=== PATIENT | male | born 1950 | race Caucasian/White ===

== ENCOUNTER 2020-07-18 00:17 | Inpatient (IN) | payer MEDICARE, OTHER ==
[~2020-07-18] VITALS: Ht 167.6 cm; Wt 45.4 kg
[2020-07-18 03:19] LABS: HEMOGLOBIN 9.6 gm/dl (14.0-17.5); RED BLOOD COUNT 3.71 M/UL (4.20-5.50); WHITE BLOOD COUNT 6.5 K/UL (4.5-11.0)
[2020-07-18 03:49] LABS: BUN/CREATININE RATIO 30 (0-10)
[2020-07-18] MEDS ORDERED: GABAPENTIN600 MG PO (10:49)
[2020-07-18] MEDS ORDERED: MYLANTA MAXIMU355 ML PO (10:50)
[2020-07-18] MEDS ORDERED: VOLTAREN100 GM TP (10:50)
[2020-07-18] MEDS ORDERED: KEFLEX SUS250 MG/5 M PO (10:52)
[2020-07-18] MEDS ORDERED: FERROUS SULFAT325 MG PO (16:15)
[2020-07-18] MEDS ORDERED: TYLENOL325 MG PO (16:15)
[2020-07-18] MEDS ORDERED: PROTONIX 40 MG40 M1 PO (16:16)
[2020-07-18] MEDS ORDERED: METOPROLOL TART25 MG PO (16:16)
[2020-07-18] MEDS ORDERED: VITAMIN D21250 MCG PO (16:17)
[2020-07-18] MEDS ORDERED: VITAMIN B-12250 MCG PO (16:17)
[2020-07-18] MEDS ORDERED: FOLIC ACID 1 MG1 MG PO (16:17)
--- NOTE | 2020-07-19 04:16 | NUR ---
PT REFUSES IV; MADE MULTIPLE ATTEMPTS TO START IV AND PT REFUSES. SITTER FOUND 3 METAL SCREWS IN PTS BED; SITTER ALSO FOUND 3 PILLS IN THE PTS BED.
[2020-07-19 08:44] LABS: HEMOGLOBIN 10.2 gm/dl (14.0-17.5); RED BLOOD COUNT 3.94 M/UL (4.20-5.50)
[2020-07-19 09:29] LABS: BUN/CREATININE RATIO 25 (0-10)
[2020-07-20 02:47] LABS: HEMOGLOBIN 9.8 gm/dl (14.0-17.5); RED BLOOD COUNT 3.8 M/UL (4.20-5.50)
[2020-07-20 02:58] LABS: WHITE BLOOD COUNT 5.4 K/UL (4.5-11.0)
[2020-07-20 03:06] LABS: BUN/CREATININE RATIO 26 (0-10)
[2020-07-20 08:39] LABS: HEMOGLOBIN 10.4 gm/dl (14.0-17.5)
--- NOTE | 2020-07-20 10:30 | NUR ---
PATIENT GOES IN CYCLES OF BEING VERY VOCAL, CALLING OUT, AND CLAIMS TO GET VERY LITTLE RELIEF FROM REPOSITIONING, OR PAIN MEDICATION. PATIENT HAS A 1:1 SITTER, HE HAD MADE SUICIDAL COMMENTS. REFUSED AN IV FOR TWO DAYS. FINALLY RECIEVED AN IV AND MAINTENANCE FLUIDS, WELL IV PAIN MEDS.
--- NOTE | 2020-07-20 10:40 | NUR ---
PATIENT HAS BP OF 86/51, AND UNCONTROLLED PAIN. PHYSICIAN NOTIFIED. SAYS SHE IS COMING RIGHT UP TO SEE PATIENT.
[2020-07-23] MEDS ORDERED: MIDODRINE HCL5 MG PO (10:55)
[2020-07-23] MEDS ORDERED: FERROUS SULFAT325 M2 PO (10:55)
[2020-07-23] MEDS ORDERED: GABAPENTIN600 MG PO (10:55)
[2020-07-23] MEDS ORDERED: THERAGRAN M TAB1 EA PO (10:55)
[2020-07-23] MEDS ORDERED: SEROQUEL XR50 MG PO (10:55)
[2020-07-23] MEDS ORDERED: REMERON 15 MG T15 MG PO (10:55)
--- NOTE | 2020-07-27 02:59 | NUR ---
07/27/15 0215 PT REFUSED AM LABS. LAB STATES THEY WILL CHECK AGAIN AT 7AM
[2020-07-27] MEDS ORDERED: HYDROCODON-ACE1 EAC2 PO (14:00)
[2020-07-27] MEDS ORDERED: ENOXAPARIN40 MG/0.4 SC (14:11)
[2020-07-27] MEDS ORDERED: KLONOPIN TAB 00.5 MG PO ×2 (14:37→14:45)
--- NOTE | 2020-07-27 16:49 | NUR ---
JACEY DIANE AT [facility] CONTACTED FOR REPORT AT THIS TIME.
--- NOTE | 2020-07-27 17:00 | NUR ---
SPOKE WITH [facility] AT THIS TIME ABOUT PATIENT TRANSFER.
--- NOTE | 2020-07-28 01:38 | NUR ---
0055 EMS CAME TO INCOME TAX ADMINISTRATOR PATIENT TO TAKE HIM TO [facility] 0110 EMS BROUGHT PATIENT BACK AND SAID THAT HE WAS REFUSING TO GO. EMS SAID THAT SINCE THE PATIENT IS ALERT AND ORIENTED, IT WAS TECHNICALLY "KIDNAPPING" IF THEY TOOK HIM. PATIENT IS VISIBLY UPSET AND SAID HE WAS AFRAID IF HE WENT TO [facility] THAT HE WOULD NOT BE ABLE TO SEE HIS S ON. NOTIFIED INSPECTOR BRAKE LINING ELIUD OF SITUATION. ELIZABET CHARGE NURSE ALSO PRESENT. WE TRIED TO CONSOLE PATIENT. 0115 ATTEMPTED TO CALL PATIENT'S SON THREE TIMES, NO ANSWER. 0120 NOTIFIED ELIUD AND PATIENT THAT THE SON DID NOT ANSWER THE PHONE. PATIENT STILL REFUSES TO GO TO THE REHAB FACILITY. ME, ELIUD, AND ELIZABET TRIED TO REASSURE THE PATIENT AND CONSOLE HIM, BUT HE STILL REFUSED. EMS BROUGHT PATIENT BACK TO HIS ROOM. 0130 ELIZABET RN NOTIFIED [facility] THAT THE PATIENT WOULD NOT BE COMING TONIGHT DUE TO HIM REFUSING. [facility] TOLD US THAT HE WOULD STILL HAVE A BED FOR AT LEAST [address] MEJIAS OF THE SITUATION. DR MEJIAS STATED "I CAN'T CANCEL A DISCHARGE ORDER, YOU DISCUSS IT WITH HIS ATTENDING IN THE MORNING" 0140 NOTIFIED ELIUD INSPECTOR BRAKE LINING THAT DR MEJIAS STATED HE COULD NOT CANCEL THE DISCHARGE ORDER. 0150 PATIENT RESTING IN HIS ROOM. PATIENT STATED HE WOULD POSSIBLY GO TO REHAB IN THE MORNING.
== END 2020-07-28 11:25 | DRG 551 ==
LOC: ER1 00:17 → CDU 08:52 → M/S 08:52
PROVIDERS: Internal Medicine; Physician Assistant Medical; Student in an Organized Health Care Education/Training Program; ADMIT Internal Medicine
DX: S32.19XA Other fracture of sacrum, initial encounter for closed fracture (principal); G93.41 Metabolic encephalopathy; S32.592A Other specified fracture of left pubis, initial encounter for closed fracture; S32.019A Unspecified fracture of first lumbar vertebra, initial encounter for closed fracture; S32.039A Unspecified fracture of third lumbar vertebra, initial encounter for closed fracture; S32.049A Unspecified fracture of fourth lumbar vertebra, initial encounter for closed fracture; S32.059A Unspecified fracture of fifth lumbar vertebra, initial encounter for closed fracture; S52.022A Displaced fracture of olecranon process without intraarticular extension of left ulna, initial encounter for closed fracture; Z20.822 Contact with and (suspected) exposure to COVID-19; D64.9 Anemia, unspecified; I95.9 Hypotension, unspecified; N30.90 Cystitis, unspecified without hematuria; R45.1 Restlessness and agitation; F03.90 Unspecified dementia, unspecified severity, without behavioral disturbance, psychotic disturbance, mood disturbance, and anxiety; F41.9 Anxiety disorder, unspecified; K59.00 Constipation, unspecified; V03.99XA Pedestrian with other conveyance injured in collision with car, pick-up truck or van, unspecified whether traffic or nontraffic accident, initial encounter
CPT/HCPCS: 36415; 70450; 71045; 71250; 72125; 72131; 72192; 73080; 73110; 73200; 74150; 80048; 80053; 81001; 82272; 82533; 82550; 82553; 82962; 83735; 83874; 84484; 85014; 85018; 85025; 85027; 86850; 86900; 86901; 96374; 96375; 96376; 97110; 97110-GP-CQ; 97162; 97166; 97530-GP-CQ; 99285; C9113; G0378; J1650; J1885; J2270; J7030; Q9963; U0002

== ENCOUNTER → 2020-10-29 | Outpatient (CLI) | payer MEDICARE, OTHER ==
[~2020-10-29] MED LIST: ENOXAPARIN40 MG/0.4 SC; FERROUS SULFAT325 M2 PO; FERROUS SULFAT325 MG PO; FOLIC ACID 1 MG1 MG PO; GABAPENTIN600 MG PO; HYDROCODON-ACE1 EAC2 PO; KEFLEX SUS250 MG/5 M PO; KLONOPIN TAB 00.5 MG PO; METOPROLOL TART25 MG PO; MIDODRINE HCL5 MG PO; MYLANTA MAXIMU355 ML PO; PROTONIX 40 MG40 M1 PO; REMERON 15 MG T15 MG PO; SEROQUEL XR50 MG PO; THERAGRAN M TAB1 EA PO; TYLENOL325 MG PO; VITAMIN B-12250 MCG PO; VITAMIN D21250 MCG PO; VOLTAREN100 GM TP
== END ==
LOC: MRI 13:00
DX: M79.672 Pain in left foot (principal); R93.7 Abnormal findings on diagnostic imaging of other parts of musculoskeletal system; R60.0 Localized edema
CPT/HCPCS: 73718

== ENCOUNTER 2021-02-22 19:49 | Emergency (ER) | payer MEDICARE, OTHER | END 2021-02-22 23:28 | disposition home or self-care (01) | LOC: ER1 19:49 | DX: M17.12 Unilateral primary osteoarthritis, left knee (principal) | CPT/HCPCS: 73564; 73700; 99283 ==